=== PATIENT | male | born 1935 | race Caucasian/White ===

== ENCOUNTER 2018-03-20 13:13 | Outpatient (CLI) | payer MEDICARE, BC ==
[~2018-03-20] VITALS: Ht 167.6 cm; Wt 93.0 kg
[~2018-03-20 13:13] MED LIST: AMIO200T57 PO; ASPI-1264 PO; CEPH250T PO; FLO0.4C PO; FURO40TA4 PO; METO25TA6 PO; NAPR220C15 PO; POTA10TA36 PO; SIMV20TA5 PO; vitamin b12 inj INJ
[2018-03-20 14:10] LABS: TOTAL HEMOGLOBIN 11.9 G/dl (14.0-18.0)
[2018-03-20] MEDS ORDERED: albuterol 2.5 MG/3 ML nebule NEB ONE (14:25)
== END 2018-03-20 23:59 | disposition home or self-care (01) ==
LOC: RT 13:13
PROVIDERS: ATTEND Internal Medicine Cardiovascular Disease
DX: Z51.81 Encounter for therapeutic drug level monitoring (principal); I10 Essential (primary) hypertension; R06.09 Other forms of dyspnea; F17.200 Nicotine dependence, unspecified, uncomplicated; Z72.89 Other problems related to lifestyle; Z79.899 Other long term (current) drug therapy
CPT/HCPCS: 85018; 94010; 94727; 94729